=== PATIENT | male | born 1950 | race Caucasian/White ===

== ENCOUNTER 2016-12-16 23:08 | Emergency (ER) | payer MEDICARE, BC ==
[2016-12-16] MEDS ORDERED: Azithromycin 250 MG Tab ONE (23:30)
[2016-12-16] MEDS ORDERED: Cyclobenzaprine 10 MG Tab ONE (23:30)
--- NOTE | 2016-12-16 23:51 | EDM.PDOC ---
ED HPI GENERAL MEDICAL PROBLEM - General Chief Complaint: Neck Problem Stated Complaint: Neck and face pain after fall Time Seen by Provider: 12/16/16 23:30 Source of Information: Reports: Patient, RN, Significant Other History Limitations: Reports: No Limitations - History of Present Illness INITIAL COMMENTS - FREE TEXT/NARRATIVE: 66 yr male [place], [place] to his vehicle and fell into his car. thinks the fall was into the rim of the tire. States she noted the blood to this area on the car. No report of loss of consciousness. Notes a chip tooth to front, bruising and swelling to nose with laceration to left nostril, abrasion to bridge of nose, and pain to neck. States hx of neck fusion. Takes pain medicine for his neck pain and did take a hydrocodone about 1 hour ago. C-collar in place, consulted Dr Leslie, will CT neck, and x-ray to nasal spine. Onset: Today Onset Date: 12/16/16 Onset Time: 10:00 Location: Reports: Face, Neck Treatments CLINICAL SERVICES ASSISTANT: Reports: Other Medication(s) - Related Data Allergies Allergy/AdvReac Type Severity Reaction Status Date / Time Latex, Natural Rubber Allergy Rash Verified 12/16/16 23:42 Penicillins Allergy Rash Verified 12/16/16 23:42 ED ROS GENERAL - Review of Systems Review Of Systems: See Below Constitutional: Reports: No Symptoms HEENT: Reports: Dental Pain, Nose Pain. Denies: Ear Pain, Eye Pain Respiratory: Reports: No Symptoms Cardiovascular: Reports: No Symptoms GI/Abdominal: Reports: No Symptoms : Reports: No Symptoms Musculoskeletal: Reports: Neck Pain Skin: Reports: Other (abrasion to nose and cut to nostril) Neurological: Reports: No Symptoms. Denies: Dizziness, Headache, Numbness, Tingling Psychiatric: Reports: No Symptoms ED EXAM, GENERAL - Physical Exam Exam: See Below Exam Limited By: No Limitations General Appearance: Alert, WD/WN, No Apparent Distress Eye Exam: Left Eye: PERRL Ears: Normal External Exam Nose: Nasal Swelling, Other (laceration left nostril) Throat/Mouth: No Airway Compromise Neck: Supple, Other (neck pain) Respiratory/Chest: No Respiratory Distress, Lungs Clear Cardiovascular: Normal Peripheral Pulses, Regular Rate, Rhythm Extremities: Normal Inspection, Non-Tender Neurological: Alert, Oriented, Normal Cognition Psychiatric: Normal Affect, Normal Mood Skin Exam: Warm, Dry, Normal Color Course - Vital Signs Last Recorded V/S: Last Vital Signs Temp 98.2 F 12/16/16 23:22 Pulse 60 12/16/16 23:22 Resp 20 12/16/16 23:22 BP 154/88 H 12/16/16 23:22 Pulse Ox 97 12/16/16 23:22 - Orders/Labs/Meds Orders: Active Orders 24 hr Category Date Time Status C-Spine [Cervical Spine wo Cont] [CT] Stat Exams 12/16/16 23:44 Taken Nasal Bone Min 3V [CR] Stat Exams 12/16/16 23:52 Taken - Re-Assessments/Exams Free Text/Narrative Re-Assessment/Exam: 12/17/16 01:03 x-ray completed nasal spine. fracture noted to tip of nasal spine. Ice applied to area. Recommend follow-up with ENT within 48-72 hour for review. Copy to Cd of film to take with. Laceration to left nostril:Dr Leslie here to suture. Area prepped with betadine , local xylocaine administered to tip of left nostril. 3 suture applied to left nostril. Recommend keep dry for 48 hour, Suture removal in 7 day with PCP. Apply antibiotic oint. tid to site. Small tear to oral mucosa, left frontal lip. Recommend cool,moist cleansing to area. Last tetanus within 4 yr. Soft tissue c-spine injury: C-collar was placed on admit and remained with CT of c-spine. Results sent for quick read. No fracture noted. C-collar removed and pt had good range of motion to neck. Pain noted with movement. Dilaudid given for relief of pain. Rx for Flexeril 10 mg PO tid and Azithromycin 250 mg PO X 5 day, with 500 mg PO given today. Pt allergic to Penicillin and latex. Results of x-ray and CT given on Cd to take with them. Reviewed results of x- ray and CT with pt and . Pt to follow-up with PCP and with ENT within 48-72 hour. 12/17/16 01:31 Departure - Departure Time of Disposition: :17 Disposition: Home, Self-Care 01 Condition: Good Clinical Impression: Contusion, Pain, Nasal bone fracture - Discharge Information Forms: ED Department Discharge - My Orders Last 24 Hours: My Active Orders 12/16/16 23:44 C-Spine [Cervical Spine wo Cont] [CT] Stat 12/16/16 23:52 Nasal Bone Min 3V [CR] Stat - Assessment/Plan Last 24 Hours: My Active Orders 12/16/16 23:44 C-Spine [Cervical Spine wo Cont] [CT] Stat 12/16/16 23:52 Nasal Bone Min 3V [CR] Stat
--- NOTE | 2016-12-17 07:26 | CT ---
DATE OF SERVICE: 12/16/16 CLINICAL DATA: Injury CERVICAL SPINE CT: Multislice acquisition from the base of the skull to T3 was performed. Axial images and sagittal and coronal reformations are reviewed. The patient is status post discectomy and fusion at C4, C5, C6, and C7 levels. There is internal fixation of C4, C5, C6, and C7 with an anterior metal plate and multiple screws. I see no acute fracture or dislocation. There is slight anterolisthesis of C7 on T1. There is degenerative disc disease at multiple levels. There are severe degenerative changes involving the atlantoaxial articulation with multiple adjacent loose bodies. No focal lytic or blastic bone lesions. IMPRESSION: No acute abnormalities. [id number] [facility]
--- NOTE | 2016-12-17 07:28 | CR ---
DATE OF SERVICE: 12/17/16 CLINICAL DATA: fall NASAL SERIES: There is a mildly displaced fracture through the distal nasal bone. I do not see any other acute abnormalities. [id number] [facility]
== END 2016-12-17 01:18 | disposition home or self-care (01) ==
LOC: LB.ED 23:08
DX: S02.2XXA Fracture of nasal bones, initial encounter for closed fracture (principal); S01.21XA Laceration without foreign body of nose, initial encounter; M54.2 Cervicalgia; Z88.0 Allergy status to penicillin; Z91.040 Latex allergy status; W01.198A Fall on same level from slipping, tripping and stumbling with subsequent striking against other object, initial encounter
CPT/HCPCS: 12011; 70160; 72125; 96372; 99283; 99284; A9270